=== PATIENT | male | born 1990 | race Caucasian/White ===

== ENCOUNTER 2020-09-16 09:12 | Emergency (ER) | payer SELFPAY ==
[2020-09-16] MEDS ORDERED: Lidocaine 1% with EPINEPHrine 1:100,000 10 ML MDV INJECT ONE (09:27)
--- NOTE | 2020-09-16 09:55 | CT ---
Head CT Technique: Multiple axial sections through the brain were obtained. Intravenous contrast was not utilized. Reconstructed coronal and sagittal images were obtained. Findings: Ventricles along with basal cisterns and sulci over the convexities are within normal limits for the patient's age. No abnormal parenchymal densities are seen. No evidence of intracranial hemorrhage is seen. No midline shift or mass-effect is seen. Bone window settings were reviewed. Visualized mastoid sinuses and paranasal sinuses show nothing acute. No acute calvarial abnormality is appreciated. Impression: 1. Nothing acute is identified on noncontrast head CT exam. Diagnostic code #1
[2020-09-16] MEDS ORDERED: Diphtheria,Pertussis(Acell),Tetanus Vaccine 0.5 ML Syringe IM ONE (10:02)
--- NOTE | 2020-09-16 10:02 | CT ---
CT facial bones Technique: Multiple axial sections through the facial bones were obtained. Reconstructed coronal and sagittal images were obtained. Comparison: No previous facial study is available. Findings: Soft tissue injury is seen within the right anterior lower face at the level of the mandible. Small radiopacity is seen within this area compatible with minimal foreign body measuring approximately 1.2 mm. Other smaller opacities are seen more inferiorly, these are most likely within the superficial skin. Minimal mucosal thickening is scattered within the right maxillary sinus which is likely chronic. No air-fluid levels are seen within the paranasal sinuses. Mastoid sinuses are clear. No other soft tissue abnormality is seen. No facial bone fracture is seen. Impression: 1. Soft tissue injury anteriorly at the level of mandible on the right side. Small associated foreign body is present within the soft tissues. Other smaller opacities are seen more inferiorly which are likely within the superficial skin. 2. Slight mucosal thickening scattered within the right maxillary sinus likely chronic. 3. No acute fracture is seen. Diagnostic code #3
--- NOTE | 2020-09-16 10:23 | EDM.PDOC ---
ED HPI GENERAL MEDICAL PROBLEM - General Chief Complaint: Laceration Stated Complaint: SIDE OF MOUTH/CHIN LAC Time Seen by Provider: 09/16/20 09:24 Source of Information: Reports: Patient History Limitations: Reports: No Limitations - History of Present Illness INITIAL COMMENTS - FREE TEXT/NARRATIVE: The patient presents with a [place]. [place] It broke and hit him in the right lower jaw. He had no LOC but it did knock him down. He says one of his upper teeth feels loose. He has a 4cm laceration to the right lower jaw. He can still bite down. He has no headache, vision changes, numbness or weakness. His tetanus is not up to date. Onset: Sudden Duration: Minutes: Location: Reports: Face Quality: Reports: Sharp Severity: Severe Improves with: Reports: None Worsens with: Reports: None Associated Symptoms: Reports: No Other Symptoms Right Lip Pain Score (Numeric/FACES): 3 - Related Data Allergies Allergy/AdvReac Type Severity Reaction Status Date / Time No Known Allergies Allergy Verified 09/16/20 09:24 Home Meds: Home Meds . [No Known Home Meds] 09/16/20 [History] Past Medical History - Past Health History Medical/Surgical History: Denies Medical/Surgical History - Infectious Disease History Infectious Disease History: Reports: None - Past Surgical History Musculoskeletal Surgical History: Reports: Other (See Below) Other Musculoskeletal Surgeries/Procedures:: knee surgery Social & Family History - Tobacco Use Tobacco Use Status *Q: Current Every Day Tobacco User Years of Tobacco use: 15 Packs/Tins Daily: 0.5 ED ROS GENERAL - Review of Systems Review Of Systems: See Below Constitutional: Reports: No Symptoms HEENT: Reports: Other (4cm laceration to his right jaw) Respiratory: Reports: No Symptoms Cardiovascular: Reports: No Symptoms Endocrine: Reports: No Symptoms GI/Abdominal: Reports: No Symptoms : Reports: No Symptoms Musculoskeletal: Reports: No Symptoms ED EXAM, SKIN/RASH Exam: See Below Exam Limited By: No Limitations General Appearance: Alert, No Apparent Distress Ears: Normal External Exam Nose: Normal Inspection Throat/Mouth: Other (4cm laceration to the right chin starting near the corner of the mouth. There is also a 1cm laceration on the inside of the lower lip. All of his teeth feel stable) Head: Atraumatic, Normocephalic Neck: Normal Inspection Respiratory/Chest: No Respiratory Distress ED SKIN PROCEDURES - Laceration/Wound Repair Right Face Appearance: Subcutaneous, Linear Anesthetic Type: Local Local Anesthesia - Lidocaine (Xylocaine): 1% with EPI Skin Prep: Saline Exploration/Debridement/Repair: Wound Explored, In a Bloodless Field, Explored to Base, Minimal Debridement Closed with: Sutures Lac/Wound length In cm: 4 Suture Size: 4-0 # of Sutures: 7 Suture Type: Nylon, Interrupted, Simple Suture Size: 3-0 # of Sutures: 2 Repaired with: Vicryl Tetanus Status Addressed: Yes Complications: No Course - Vital Signs Last Recorded V/S: Last Vital Signs Temp 98 F 09/16/20 09:19 Pulse 78 09/16/20 09:19 Resp 14 09/16/20 09:19 BP 159/79 H 09/16/20 09:25 Pulse Ox 98 09/16/20 09:19 - Orders/Labs/Meds Orders: Active Orders 24 hr Category Date Time Status Vaccines to be Administered [RC] PER UNIT ROUTINE Care 09/16/20 10:03 Active Meds: Medications Discontinued Medications Generic Name Dose Route Start Last Admin Trade Name Freq PRN Reason Stop Dose Admin Diphtheria/Tetanus/Acell Pertussis 0.5 ml 09/16/20 10:02 09/16/20 10:17 Diphtheria,Pertussis(Acell),Tetanus Vaccine 0.5 Ml Syringe IM 09/16/20 10:03 Not Given .ONCE ONE Lidocaine/Epinephrine 10 ml 09/16/20 09:27 09/16/20 09:31 Lidocaine 1% With Epinephrine 1:100,000 10 Ml Mdv INJECT 09/16/20 09:28 10 ml ONETIME ONE Administration - Re-Assessments/Exams Free Text/Narrative Re-Assessment/Exam: 09/16/20 10:[address] of his head and his head CT shows nothing acute is identified on noncontrast head CT exam. The CT of his maxillofacial bones shows soft tissue injury anteriorly at the level of mandible on the right side. Small associated foreign body is present within the soft tissues. Other smaller opacities are seen more inferiorly which are likely within the superficial skin. Slight mucosal thickening scattered within the right maxillary sinus likely chronic. No acute fracture is seen. My nurse cleaned up the wound but seeing that FBs on CT, I irrigated more and removed some particles with forceps. I then sutured the wound. The patient did not want his tetanus today. He will follow up in the clinic. Departure - Departure Time of Disposition: 10:30 Disposition: Home, Self-Care 01 Condition: Good Clinical Impression: Concussion injury of tooth Head injury Qualifiers: Encounter type: initial encounter Qualified Code(s): S09.90XA - Unspecified injury of head, initial encounter Facial laceration Qualifiers: Encounter type: initial encounter Qualified Code(s): S01.81XA - Laceration without foreign body of other part of head, initial encounter - Discharge Information *PRESCRIPTION DRUG MONITORING PROGRAM REVIEWED*: Not Applicable *COPY OF PRESCRIPTION DRUG MONITORING REPORT IN PATIENT SVETLANA: Not Applicable Referrals: PCP,None [Primary Care Provider] - Edwina Spaulding, EMPLOYEE WELLNESS/FITNESS COORDINATOR [Nurse Practitioner] - 1 Week Additional Instructions: Clean the wound with warm soapy water 2 times per day and apply antibiotic ointment after. Have the sutures removed within a week. Look for any signs of infection such as redness, swelling, pain or discharge. If you see any of these signs, please return or see your doctor. You may need oral antibiotics. You had a laceration in your mouth that was closed with internal sutures. [place] your teeth 2 times per day and rinse your mouth with water after eating or drinking to keep that area clean. Sepsis Event Note (ED) - Evaluation Sepsis Screening Result: No Definite Risk - Focused Exam Vital Signs: Vital Signs Temp Pulse Resp BP Pulse Ox 09/16/20 09:25 159/79 H 09/16/20 09:19 98 F 78 14 163/94 H 98 - My Orders Last 24 Hours: My Active Orders 09/16/20 10:03 Vaccines to be Administered [RC] PER UNIT ROUTINE - Assessment/Plan Last 24 Hours: My Active Orders 09/16/20 10:03 Vaccines to be Administered [RC] PER UNIT ROUTINE
== END 2020-09-16 10:40 | disposition home or self-care (01) ==
LOC: JD.ED 09:12
DX: S06.0X0A Concussion without loss of consciousness, initial encounter (principal); S01.81XA Laceration without foreign body of other part of head, initial encounter; S01.511A Laceration without foreign body of lip, initial encounter; Z72.0 Tobacco use; W22.8XXA Striking against or struck by other objects, initial encounter; W26.8XXA Contact with other sharp object(s), not elsewhere classified, initial encounter
CPT/HCPCS: 12013; 70450; 70450-26; 70486; 70486-26; 99283; 99283-25